=== PATIENT | male | born 1985 | race Caucasian/White ===

== ENCOUNTER 2021-07-03 17:26 | Emergency (ER) | payer OTHER, SELFPAY ==
--- NOTE | ~2021-07-03 | CT_ITS ---
EXAMINATION: CT ABDOMEN AND PELVIS WITHOUT CONTRAST CLINICAL INFORMATION: Right flank pain. COMPARISON: None TECHNIQUE: Multidetector volumetric imaging was performed from the superior aspect of the liver through the pubic symphysis. Sagittal and coronal reformatted images were obtained on the technologist's workstation. This CT examination was performed using dose optimization techniques as appropriate, variously including the following: *Automated exposure control *Adjustment of mA and/or kV according to patient size (this includes techniques or standardized protocols for targeted exams where dose is matched to indication/reason for exam; i.e. extremities or head) *Use of iterative reconstruction technique DLP: 352 mGy-cm FINDINGS: LUNG BASES: Right lower lobe calcified granuloma. LIVER, GALLBLADDER, AND BILIARY TREE: The liver appears enlarged and hypoattenuating, consistent with steatosis. There is a right hepatic lobe calcified granuloma. No additional hepatic parenchymal lesion or biliary ductal dilatation. Evaluation limited without contrast. The gallbladder is unremarkable with no evidence of radiopaque gallstones, gallbladder wall thickening, or obvious pericholecystic inflammatory changes. PANCREAS: Grossly unremarkable. SPLEEN: Unremarkable. ADRENAL GLANDS: Unremarkable. KIDNEYS AND URETERS: The kidneys are normal in size, shape, and attenuation. There is a right lower pole renal stone measuring up to 0.6 cm and 515 Hounsfield units. This is located approximately 5.7 cm from the posterior axillary line. There are multiple additional bilateral 0.1-0.2 cm renal stones. No ureteral stone. No hydronephrosis or hydroureter. No perinephric stranding. BLADDER: Unremarkable. No urinary bladder stone. No wall thickening or inflammatory change. GASTROINTESTINAL TRACT: Tiny, sliding hiatal hernia. Mild stool throughout the colon. No bowel wall thickening or associated inflammatory change. Appendix not identified. No significant right or quadrant inflammatory change to suggest acute appendicitis. PERITONEAL CAVITY: No intra-abdominal free air or free fluid. No intra-abdominal mass or organized fluid collection/abscess formation. ABDOMINAL WALL: No significant hernia is appreciated. LYMPH NODES: No significant lymphadenopathy, however, evaluation is limited without IV contrast. VASCULAR: Unremarkable. PELVIC VISCERA: The prostate and seminal vesicles are unremarkable. OSSEOUS STRUCTURES: Unremarkable. CT/CT abdomen pelvis wo con IMPRESSION: Right lower pole renal stone measuring 0.6 cm. Additional bilateral 0.1-0.2 cm renal stones. No ureteral stone. No hydronephrosis or hydroureter. No urinary bladder stone. No perinephric stranding. Tiny, sliding hiatal hernia. Mild stool burden. No small or large bowel obstruction. No bowel wall thickening or associated inflammatory change.
--- NOTE | 2021-07-03 17:35 | ED.ABDPAIN ---
HPI - Abdominal Pain General Chief Complaint: Abdominal Pain Stated Complaint: flank pain Time Seen by Provider: 07/03/21 17:35 Source: patient and EMS Mode of arrival: EMS Limitations: no limitations History of Present Illness MD elicited complaint: flank pain Pertinent past history: kidney stones Onset (ago): hour(s) (started last night then worsened throughout the day) Pain Consistency: colicky Location: R flank Severity: severe Quality: stabbing Radiation: RLQ Migration to: no migration Exacerbating factors: eating Relieving factors: nothing Context: history of similar episodes and other (also in detox for 4 days - states he refused his suboxone today so he could get pain medications in the ED for his flank pain) Associated symptoms: nausea and vomiting Related Data Allergies Allergy/AdvReac Type Severity Reaction Status Date / Time No Known Allergies Allergy Verified 07/03/21 18:25 Review of Systems Review of Systems Constitutional : No Weight loss, No Fever, pos Chills ENT/Mouth : No sore throat, No Rhinorrhea Eyes: No Swelling, No Redness Cardiovascular : No Chest Pain, No SOB, NoEdema Respiratory : No Cough, No Sputum, No Wheezing Gastrointestinal : Positive Nausea, Positive Vomiting, no Diarrhea, positive abdominal Pain, No Hematochezia, No Melena, pos flank pain Genitourinary : No Dysuria, No Urinary Frequency, No Hematuria, No Urgency Musculoskeletal : No joint pain, No Myalgias, No Joint Swelling Skin : No Skin Lesions, No rash Neuro : No Weakness, No Numbness, No Dizziness, No Headache Psych : No Anxiety/Panic, No Depression Heme/Lymph: No Bruising, No Lymphadenopathy Endocrine : No Polyuria, No Polydipsia All other systems reviewed and are negative. Physical Exam Vital Signs: Vital Signs: Last Vital Signs Temp 98.9 F 07/03/21 17:46 Pulse 58 07/03/21 17:46 Resp 14 07/03/21 17:46 BP 129/57 L 07/03/21 17:46 Pulse Ox 100 07/03/21 17:46 Body Mass Index 24.0 Appearance: Alert. Oriented X3. No acute distress. agitated and rude to EMS. I didn't take my suboxone today. I didn't take it so you could give me meds. What pain medications are you giving me? Eyes: Pupils equal, round and reactive to light. ENT: Pharynx normal. Neck: Normal inspection. Neck supple. CVS: Normal heart rate and rhythm. Pulses normal. Respiratory: No respiratory distress. Breath sounds normal. Abdomen: Soft and nontender. Skin: Skin warm and dry. Normal skin color. Normal skin turgor. Extremities: No lower extremity edema. No calf ttp Neuro: Oriented X 3. No motor deficit. No sensory deficit. Course Course Course Narrative: no obstructing stones, no ureteral stones. at this time I discussed with him that he is likely in withdrawal since he refused all 3 doses of suboxone. He is upset and now wants to leave. He is on voluntary status and can be DC after RNs called facility on his arrival as well as involving the CARE team to make sure we were following protocol. He is alert and oriented x 3, went over results with him prior to DC RN called facility to let them know that he refused to return - they now state that he is no longer voluntary he has no SI here I cannot section him to our facility at this time will again discuss with CARE team in interview with myself and CARE team he denies SI no plan he does not want to go to detox, he is calm and cooperative at this time will discuss again with CARE team at this time pending disposition as there are some legal issues regarding his CV. advised to section him if he tries to leave as it is documented in his papers from facility that he was being treated for SI. CARE team notes that after discussion with [facility], psychiatry he can be DC at this time MDM - Abdominal Pain MDM Narrative Medical decision making narrative: 36 yo male with substance abuse disorder and hx of renal colic comes in with vomiting and R flank pain - he did not take his suboxone today so he could get pain medications which is somewhat weird if you're in pain. Unsure if this is renal colic vs withdrawal. IVF, toradol and nausea medications - CT scan for renal colic ordered. He is at detox but not sectioned technically - they note we have to call the facility if he wants to leave. Lab Data Result diagrams: 07/03/21 18:38 07/03/21 18:38 Labs: Lab Results 07/03/21 07/03/21 07/03/21 Range/Units 18:38 18:38 18:38 WBC 7.1 (4.8-10.8) X10*3/uL RBC 5.69 (4.60-5.80) X10*6/uL Hgb 15.3 (14.0-18.0) g/dl Hct 46.4 (42-52) % MCV 81.5 (80-98) fL MCH 26.9 L (27.0-33.0) pg MCHC 33.0 (31.0-36.0) g/dl RDW 13.6 (11.0-16.0) % Plt Count 311 (160-400) X10*3/uL MPV 9.7 (9.4-12.4) fL Immature Gran % (Auto) 0.1 (0.0-0.4) % Neut % (Auto) 77.6 H (45-73) % Lymph % (Auto) 18.3 L (20-40) % [place] % (Auto) 3.9 (2-11) % Eos % (Auto) 0.0 (0-4) % Baso % (Auto) 0.1 (0-2) % Lymph # (Auto) 1.3 (1.2-4.9) X10*3/uL [place] # (Auto) 0.3 (0.1-1.2) X10*3/uL Eos # (Auto) 0.0 (0.0-0.4) X10*3/uL Baso # (Auto) 0.0 (0.0-0.2) X10*3/uL Abs Immat Gran (auto) 0.01 (0.00-0.03) X10*3/uL Absolute Neuts (auto) 5.5 (2.0-8.3) X10*3/uL Absolute Nucleated RBC 0.000 (0.0-0.012) X10*3/uL Nucleated RBC % (auto) 0.0 (0.0-0.2) /100WBC Sodium 141 (135-145) mmol/L Potassium 4.3 (3.3-5.1) mmol/L Chloride 102 (96-108) mmol/L Carbon Dioxide 25 (22-29) mmol/L Anion Gap 18 (12-20) BUN 20 H (9-16) mg/dL Creatinine 1.19 (0.5-1.4) mg/dL Estim Creat Clear Calc 68.4 Estimated GFR > 60 Random Glucose 117 H (60-115) mg/dL Calcium 10.3 H (8.4-10.2) mg/dL Magnesium 2.1 (1.6-2.6) mg/dL Total Bilirubin 0.7 (0.0-1.0) mg/dL Direct Bilirubin 0.3 (0.0-0.5) mg/dL AST 33 (5-37) U/L ALT 52 H (0-40) U/L Alkaline Phosphatase 70 (39-117) U/L Total Protein 8.7 H (6.5-8.0) g/dL Albumin 4.8 (3.5-5.0) g/dL Lipase 20 (8-78) U/L COVID-19 (MICHAEL) Negative (Negative) COVID-19 Clin Com See Note Discharge Plan Discharge Clinical Impression: Opiate withdrawal Patient Disposition: Home, Self-Care Instructions: Narcotic Withdrawal (ED) Additional Instructions: return to ED for any worsening symptoms or concerns your CT scan shows no stones in your ureter and no obstructing stones you were offered suboxone but refused you are now leaving the ED instead of going back to detox at your own request [facility] Past Medical History Attestation statement: The following information was validated with the patient. Medical History (Updated 07/03/21 @ 19:18 by Aisha Barry DO) Opiate use Renal colic Social History Social History Alcohol intake: never Patient Tobacco Use Status: Current everyday Tobacco user Use of substances other than those prescribed or required for medical reasons: Yes Substance Use Type: Heroin Advance Directives: No Advance Directives Information Provided: No
[2021-07-03 17:46] VITALS: BP 129/57; PULSE 58; RESP 14; TEMP 37.2; O2SAT 100
--- NOTE | 2021-07-03 18:12 | MHC.CARE ---
CARE Team was consulted for pt who arrived on a CV. CARE Team spoke with [facility] staff who provided background on pt and confirmed that pt is at [facility] voluntarily and is able to return to [facility] after receiving medical treatment. If pt does not want to return to [facility] or wishes to be discharged from [facility], [facility] staff ask that they are notified so they will know not to expect him back. [facility] can be contacted at [phone].
[2021-07-03 18:25] VITALS: BP 125/63; PULSE 58; O2SAT 100; BMI 24.0
[2021-07-03 18:45] LABS: MANUAL DIFF FLAG NO
[2021-07-03 18:47] LABS: Basophils Percent Auto 0.1 % (0-2); Hematocrit 46.4 % (42-52); Hemoglobin 15.3 g/dl (14.0-18.0); Imm Gran Abs Auto 0.01 X10*3/uL (0.00-0.03); Imm Gran Pct Auto 0.1 % (0.0-0.4); Lymphocytes Absolute Auto 1.3 X10*3/uL (1.2-4.9); Lymphocytes Percent Auto 18.3 % (20-40); Mean Corpuscular Hemoglobin 26.9 pg (27.0-33.0); Mean Corpuscular Volume 81.5 fL (80-98); Mean Platelet Volume 9.7 fL (9.4-12.4); Monocytes Absolute Auto 0.3 X10*3/uL (0.1-1.2); Monocytes Percent Auto 3.9 % (2-11); Neutrophils Absolute Auto 5.5 X10*3/uL (2.0-8.3); Neutrophils Percent Auto 77.6 % (45-73); Platelet Count 311 X10*3/uL (160-400); Red Blood Count 5.69 X10*6/uL (4.60-5.80); Red Cell Distribution Width 13.6 % (11.0-16.0); White Blood Count 7.1 X10*3/uL (4.8-10.8)
[2021-07-03] MEDS: Ketorolac Tromethamine 15 MG/ML VIAL 30 MG IVPUSH (18:48)
[2021-07-03] MEDS: diphenhydrAMINE HCL 50 MG/ML VIAL 25 MG IVPUSH (18:48)
[2021-07-03] MEDS: 0.9 % Sodium Chloride 1,000 ML 999 ML IVCONT (18:48)
[2021-07-03] MEDS: Metoclopramide HCl 10 MG/2 ML VIAL IVPUSH (18:48)
[2021-07-03 19:03] LABS: Alanine Aminotransferase 52 U/L (0-40); Albumin Level 4.8 g/dL (3.5-5.0); Alkaline Phosphatase 70 U/L (39-117); Anion Gap 18 (12-20); Aspartate Amino Transferase 33 U/L (5-37); Bilirubin Direct 0.3 mg/dL (0.0-0.5); Bilirubin Total 0.7 mg/dL (0.0-1.0); Blood Urea Nitrogen 20 mg/dL (9-16); Calcium 10.3 mg/dL (8.4-10.2); Carbon Dioxide 25 mmol/L (22-29); Chloride 102 mmol/L (96-108); Creatinine Clr Calc Pharmacy 68.4; Estimated Glomerular Filt Rate > 60; Glucose Random 117 mg/dL (60-115); Lipase 20 U/L (8-78); Magnesium 2.1 mg/dL (1.6-2.6); Potassium 4.3 mmol/L (3.3-5.1); Sodium 141 mmol/L (135-145); Total Protein 8.7 g/dL (6.5-8.0)
[2021-07-03 19:07] LABS: COVID-19 Test Negative (Negative)
--- NOTE | 2021-07-03 19:25 | PC.NURSE ---
Pt requesting pants while this RN gettign report from previous RN as he reports he is ready to go. This RN informed the patient that pants would be given momentarily and that he cannot be discharged prior to having his IV line removed. The pt then responded I already took it out . This RN could confirm that the IV was on the floor draining fluids onto the group. Catheter tip was intact and bleeding controlled at the site.
--- NOTE | 2021-07-03 19:26 | PC.NURSE ---
While this RN receiving report from Glenna Barry was observed to approach the member and inform him that he does not have a kidney stone. Pt inquired about the reasoning for his discomfort/symptoms and informed pt it could be withdrawal symptoms that he is experiencing as a result of him refusing the suboxone. Pt requesting to be discharged home directly from [facility] and this RN will outreach [facility] directly to make them aware. Pt noted to have a signed conditional voluntary on file.
--- NOTE | 2021-07-03 19:30 | PC.NURSE ---
This RN called [facility] at [phone] and after speaking to the answering service was forwarded to a nurses station. This RN introduced herself and asked to speak with someone in charge regarding a patient of theirs that we have. This RN informed them that the patient ready for discharge and looking to go home directly from [facility]. The person on the phone stated Okay hold on . This RN was placed on hold and then the same individual returned to the phone and stated He can go home , this RN confirmed and repeated the information back directly and the individual said yes the information was correct. I asked for the name of the supervisor publications and was informed Fallon was the supervisor publications that she was the individual who reported the pt could go home from the ER. This RN asked for the individual's name that i was speaking with and I was informed it was jimmy.
--- NOTE | 2021-07-03 19:40 | PC.NURSE ---
Staff received a call from [facility] reporting the member could NOT be discharged home from the emergency department and needed to be sent back to the facility. This RN and operations support analyst spoke with the delivery room supervisor Fallon (who reportedly gave the okay for the pt to be discharged home from the ER) who is now reporting the member would need to be discharged back to the facility. Pt has been refusing discharge back to the facility and per delivery room supervisor Fallon the pt cannot just be discharged home and she is unaware of what to do. Recommendation was for charge machine operator to discuss the pt's case with her superior. Per operations support analyst, return call pending from [facility] as the pt will either need to return back to [facility] and/or if he refuses be evaluated by N or the Care Team. operations support analyst to bedside to make patient aware; pt calm and cooperative at this time. He is aware that he cannot just leave the ER and security has been made aware and is standing by. Pt will continue to be monitored
--- NOTE | 2021-07-03 20:15 | PC.NURSE ---
This RN at bedside in room 20 and could see the pt self propelling himself in a wheelchair past the room and when asked where he was going he informed this RN he was going to the restroom and when asked why he was in a wheelchair he reported I feel dizzy miss . This RN then called security at [phone] to make them aware and request assistance/desulfurizer hand of the patient as this RN was in with another patient. When this RN was completed in room 20 she looked down the tucker and could see the patient outside of the ER doors wheeling himself through the waiting room. This RN immediately wheeled the patient back into the emergency room, made charge master specialist aware and informed the patient that he would have to remain in the ER until confirmation received from [facility] for next steps
--- NOTE | 2021-07-03 20:37 | MHC.CARE ---
CARE Team was consulted about pt's disposition after [facility] claimed that pt could not be discharged home. After confirming that the CV for [facility] was void as soon as pt left [facility], CARE Team spoke with pt who denied SI/HI/. CARE Team called [facility] workroom to determine if N had recently assessed pt and if [facility] had sectioned pt with section 12 to [facility]. [facility] confirmed that pt was not sectioned to [facility] and that if they had felt pt was a risk to himself or others they would have sectioned him. Pt can be discharged home.
== END 2021-07-03 20:42 | disposition home or self-care (01) ==
PROVIDERS: Emergency Provider Emergency Medicine
DX: F11.23 Opioid dependence with withdrawal (principal); R10.31 Right lower quadrant pain; Z20.822 Contact with and (suspected) exposure to COVID-19; Z71.51 Drug abuse counseling and surveillance of drug abuser; Z79.899 Other long term (current) drug therapy
CPT/HCPCS: 36415; 74176; 80048; 80076; 83690; 83735; 85025; 87635; 96361; 96374; 96375; 99284; J1200; J1885; J2765